=== PATIENT | female | born 1960 | race Two or more races ===

== ENCOUNTER 2019-01-12 15:25 | Emergency (ER) | payer BC, MEDICARE ==
[~2019-01-12] VITALS: Ht 154.9 cm; Wt 99.0 kg
[~2019-01-12 15:25] MED LIST: ONDA4TAB59 PO; SUCR1ORA2 PO
[2019-01-12] MEDS ORDERED: normal saline 1000ML IV soln IV ONE (15:45)
[2019-01-12] MEDS ORDERED: levoFLOXACIN-Levaquin 750MG/D5 150 ML IV ONE (15:45)
[2019-01-12] MEDS ORDERED: methylPREDNISolone sod succ 125mg/2ml vial IV ONE (16:10)
[2019-01-12] MEDS ORDERED: ipratropium/albuterol 3ml nebule NEB ONE (16:10)
[2019-01-12 16:33] LABS: BASOPHILS # (AUTO) 0.1 X10'3 (0-0.2); BASOPHILS % (AUTO) 0.8 % (0-1); EOSINOPHILS # (AUTO) 0.1 X10'3 (0-0.9); EOSINOPHILS % (AUTO) 1.7 % (0-6); HEMATOCRIT 40.7 % (35.0-45.0); HEMOGLOBIN 13.4 g/dl (12.0-16.0); LYMPHOCYTES # (AUTO) 3.2 X10'3 (1.1-4.8); LYMPHOCYTES % (AUTO) 37.6 % (21-51); MEAN CORPUSCULAR HEMOGLOBIN 27.3 PG (27.0-31.0); MEAN CORPUSCULAR VOLUME 82.5 FL (78-98); MONOCYTES # (AUTO) 0.4 X10'3 (0-0.9); MONOCYTES % (AUTO) 4.2 % (2-12); NEUTROPHILS # (AUTO) 4.7 X10'3 (1.8-7.7); NEUTROPHILS % (AUTO) 55.7 % (42-75); PLATELET COUNT 293 X10'3 (140-440); RED BLOOD COUNT 4.93 X10'6 (4.20-5.60); RED CELL DISTRIBUTION WIDTH 16.6 % (11.5-14.5); WHITE BLOOD COUNT 8.4 X10'3 (4.5-11.0)
[2019-01-12 16:36] LABS: PARTIAL THROMBOPLASTIN TIME 27 SECONDS (22-32)
[2019-01-12 16:54] LABS: ALANINE AMINOTRANSFERASE 24 U/L (12-78); ALBUMIN 3.5 G/DL (3.4-5.0); ALBUMIN/GLOBULIN RATIO 0.9 (1.1-1.5); ALKALINE PHOSPHATASE 80 IU/L (46-116); ANION GAP 11 (8-16); ASPARTATE AMINO TRANSFERASE 13 U/L (10-37); BILIRUBIN,TOTAL 0.3 MG/DL (0.1-1.0); BLOOD UREA NITROGEN 10 MG/DL (7-18); BUN/CREATININE RATIO 10.5 (6.6-38.0); CALCIUM 9.3 MG/DL (8.5-10.1); CHLORIDE 106 MMOL/L (99-107); CREATININE 0.95 MG/DL (0.40-0.90); GLUCOSE 164 MG/DL (70-104); MAGNESIUM 1.9 MG/DL (1.5-2.4); POTASSIUM 3.7 MMOL/L (3.5-5.1); SODIUM 145 MMOL/L (135-145); TOTAL CARBON DIOXIDE 28.3 MMOL/L (24-32); TOTAL PROTEIN 7.6 G/DL (6.4-8.2); eGFR 60 ML/MIN
[2019-01-12] MEDS ORDERED: iohexol 350MG/ML 100ml bottle IV ONE (17:14)
--- NOTE | 2019-01-12 17:23 | NUR ---
relieving RN for lunch, pt to [place]
--- NOTE | 2019-01-12 17:40 | NUR ---
pt back from [place], 1st liter NS infusing,
[2019-01-12] MEDS ORDERED: LEVO750T21 PO (18:22)
[2019-01-12] MEDS ORDERED: PRED20TA PO (18:22)
[2019-01-12 18:30] VITALS: BP 151/89
[2019-01-12 18:54] LABS: CLARITY,URINE CLEAR (Clear); COLOR,URINE YELLOW (Yellow); GLUCOSE, URINE NEGATIVE (Neg); KETONES,URINE NEGATIVE (Neg); LEUKOCYTE ESTERASE ,URINE NEGATIVE (Neg); NITRITES, URINE NEGATIVE (Neg); OCCULT BLOOD,URINE NEGATIVE (Neg); PROTEIN,URINE NEGATIVE (Neg); UROBILINOGEN,URINE 0.2 E.U/dL (0.2-1.0)
[2019-01-12 18:55] LABS: UA COLLECTION TYPE CLN CATCH MIDSTREAM
== END 2019-01-12 18:55 | disposition home or self-care (01) ==
LOC: ER 15:25
DX: J20.9 Acute bronchitis, unspecified (principal); F17.200 Nicotine dependence, unspecified, uncomplicated; E03.9 Hypothyroidism, unspecified; G89.29 Other chronic pain; M79.7 Fibromyalgia; Z98.890 Other specified postprocedural states; Z88.5 Allergy status to narcotic agent; Z79.899 Other long term (current) drug therapy
CPT/HCPCS: 36415; 71045; 71275; 80053; 81003; 83605; 83735; 84145; 85025; 85610; 85730; 87040; 87502; 87503; 93005; 94640; 96365; 96375; 99284; J1956; J2930; J7030; Q9967; 94760

== ENCOUNTER 2019-02-14 13:31 | Emergency (ER) | payer MEDICARE, MEDICAID ==
[~2019-02-14] VITALS: Ht 154.9 cm; Wt 99.0 kg
[2019-02-14] MEDS ORDERED: AMOX-580 PO (14:35)
[2019-02-14] MEDS ORDERED: benzonatate 100mg capsule PO ONE (14:35)
[2019-02-14] MEDS ORDERED: ipratropium/albuterol 3ml nebule NEB ONE (14:35)
[2019-02-14] MEDS ORDERED: BENZ-16 PO (14:52)
[2019-02-14 15:06] VITALS: BP 149/81
[2019-02-15] MEDS ORDERED: AZIT-63 PO (04:40)
[2019-02-15] MEDS ORDERED: PRED20TA PO (04:41)
[2019-02-15] MEDS ORDERED: ALBU8.5H8 INH (04:41)
[2019-02-15] MEDS ORDERED: ROBCFL PO (04:41)
== END 2019-02-14 15:07 | disposition home or self-care (01) ==
LOC: ER 13:31
DX: J20.9 Acute bronchitis, unspecified (principal); G89.29 Other chronic pain; M79.7 Fibromyalgia; E03.9 Hypothyroidism, unspecified; F17.200 Nicotine dependence, unspecified, uncomplicated; Z88.5 Allergy status to narcotic agent; Z87.01 Personal history of pneumonia (recurrent)
CPT/HCPCS: 94640; 94760; 99283

== ENCOUNTER 2019-02-15 02:12 | Emergency (ER) | payer MEDICARE, MEDICAID ==
[~2019-02-15] VITALS: Ht 154.9 cm; Wt 90.9 kg
[~2019-02-15 02:12] MED LIST changes: +AMOX-580 PO; +BENZ-16 PO
[2019-02-15] MEDS ORDERED: epiNEPHrine 1 mg/ml inj IM STA (02:21)
[2019-02-15] MEDS ORDERED: LORazepam 2 mg/ml vial IV ONE (02:25)
[2019-02-15] MEDS ORDERED: methylPREDNISolone sod succ 125mg/2ml vial IV ONE (02:25)
[2019-02-15] MEDS ORDERED: ipratropium/albuterol 3ml nebule NEB ONE (02:25)
[2019-02-15] MEDS ORDERED: ondansetron/PF 4mg/2ml inj IV ONE (03:00)
[2019-02-15 03:38] LABS: BASOPHILS # (AUTO) 0.1 X10'3 (0-0.2); EOSINOPHILS # (AUTO) 0.2 X10'3 (0-0.9); HEMATOCRIT 38.9 % (35.0-45.0); HEMOGLOBIN 12.8 g/dl (12.0-16.0); LYMPHOCYTES # (AUTO) 6.8 X10'3 (1.1-4.8); LYMPHOCYTES % (AUTO) 46.3 % (21-51); MEAN CORPUSCULAR HEMOGLOBIN 27.3 PG (27.0-31.0); MEAN CORPUSCULAR HGB CONC 32.9 g/dL (33.0-36.5); MEAN PLATELET VOLUME 8.8 FL (7.4-10.4); MONOCYTES # (AUTO) 1.1 X10'3 (0-0.9); MONOCYTES % (AUTO) 7.4 % (2-12); NEUTROPHILS # (AUTO) 6.5 X10'3 (1.8-7.7); NEUTROPHILS % (AUTO) 44.3 % (42-75); PLATELET COUNT 335 X10'3 (140-440); RED BLOOD COUNT 4.68 X10'6 (4.20-5.60); RED CELL DISTRIBUTION WIDTH 16.3 % (11.5-14.5); WHITE BLOOD COUNT 14.7 X10'3 (4.5-11.0)
[2019-02-15 03:48] LABS: PARTIAL THROMBOPLASTIN TIME 23 SECONDS (22-32)
[2019-02-15 03:51] LABS: ALANINE AMINOTRANSFERASE 18 U/L (12-78); ALBUMIN 3.5 G/DL (3.4-5.0); ALKALINE PHOSPHATASE 74 IU/L (46-116); ANION GAP 11 (8-16); ASPARTATE AMINO TRANSFERASE 10 U/L (10-37); BILIRUBIN,TOTAL 0.4 MG/DL (0.1-1.0); BLOOD UREA NITROGEN 21 MG/DL (7-18); BUN/CREATININE RATIO 22.3 (6.6-38.0); CALCIUM 8.6 MG/DL (8.5-10.1); CHLORIDE 107 MMOL/L (99-107); CREATININE 0.94 MG/DL (0.40-0.90); GLUCOSE 165 MG/DL (70-104); POTASSIUM 3.2 MMOL/L (3.5-5.1); SODIUM 143 MMOL/L (135-145); TOTAL CARBON DIOXIDE 24.8 MMOL/L (24-32); eGFR 61 ML/MIN
[2019-02-15] MEDS ORDERED: normal saline 1000ml 1,000 ML IV ONE (04:05)
[2019-02-15] MEDS ORDERED: AZIT-63 PO (04:40)
[2019-02-15] MEDS ORDERED: ALBU8.5H8 INH (04:41)
[2019-02-15] MEDS ORDERED: ROBCFL PO (04:41)
[2019-02-15] MEDS ORDERED: PRED20TA PO (04:41)
[2019-02-15 05:01] VITALS: BP 125/58
== END 2019-02-15 04:45 | disposition home or self-care (01) ==
LOC: ER 02:12
DX: R06.02 Shortness of breath (principal); E03.9 Hypothyroidism, unspecified; G89.29 Other chronic pain; M79.7 Fibromyalgia; Z98.890 Other specified postprocedural states; Z87.01 Personal history of pneumonia (recurrent); Z79.899 Other long term (current) drug therapy; Z79.2 Long term (current) use of antibiotics; Z88.5 Allergy status to narcotic agent
CPT/HCPCS: 36415; 71045; 80053; 83880; 85025; 85610; 85730; 93005; 94640; 96372; 96374; 96375; 99284; J0171; J2060; J2405; J2930; J7030; 94760

== ENCOUNTER 2020-04-27 16:40 | Emergency (ER) | payer MEDICARE, MEDICAID ==
[~2020-04-27] VITALS: Ht 154.9 cm; Wt 103.2 kg
[~2020-04-27 16:40] MED LIST changes: +ALBU8.5H8 INH; -AMOX-580 PO
--- NOTE | 2020-04-27 18:44 | NUR ---
Pt states she went to the DR and he stated her BS was above 300. Currently 275
[2020-04-27 19:36] LABS: BASOPHILS # (AUTO) 0.1 X10'3 (0-0.2); BASOPHILS % (AUTO) 1.2 % (0-1); EOSINOPHILS # (AUTO) 0.2 X10'3 (0-0.9); EOSINOPHILS % (AUTO) 2.1 % (0-6); HEMATOCRIT 41.3 % (35.0-45.0); HEMOGLOBIN 13.5 g/dl (12.0-16.0); LYMPHOCYTES # (AUTO) 2.9 X10'3 (1.1-4.8); LYMPHOCYTES % (AUTO) 32.5 % (21-51); MEAN CORPUSCULAR HEMOGLOBIN 27.1 PG (27.0-31.0); MEAN CORPUSCULAR HGB CONC 32.7 g/dL (33.0-36.5); MEAN CORPUSCULAR VOLUME 82.8 FL (78-98); MONOCYTES # (AUTO) 0.8 X10'3 (0-0.9); MONOCYTES % (AUTO) 8.7 % (2-12); NEUTROPHILS % (AUTO) 55.5 % (42-75); PLATELET COUNT 297 X10'3 (140-440); RED BLOOD COUNT 4.98 X10'6 (4.20-5.60); RED CELL DISTRIBUTION WIDTH 16.5 % (11.5-14.5); WHITE BLOOD COUNT 9.1 X10'3 (4.5-11.0)
[2020-04-27 19:40] VITALS: BP 128/72
[2020-04-27 19:49] LABS: ALANINE AMINOTRANSFERASE 45 U/L (12-78); ALBUMIN 3.5 G/DL (3.4-5.0); ALBUMIN/GLOBULIN RATIO 0.8 (1.1-1.5); ALKALINE PHOSPHATASE 97 IU/L (46-116); ANION GAP 8 (8-16); ASPARTATE AMINO TRANSFERASE 22 U/L (10-37); BILIRUBIN,TOTAL 0.2 MG/DL (0.1-1.0); BLOOD UREA NITROGEN 11 MG/DL (7-18); BUN/CREATININE RATIO 12.8 (6.6-38.0); CALCIUM 9.4 MG/DL (8.5-10.1); CHLORIDE 103 MMOL/L (99-107); CREATININE 0.86 MG/DL (0.40-0.90); GLUCOSE 215 MG/DL (70-104); POTASSIUM 4.2 MMOL/L (3.5-5.1); SODIUM 140 MMOL/L (135-145); TOTAL CARBON DIOXIDE 29.1 MMOL/L (24-32); TOTAL PROTEIN 7.8 G/DL (6.4-8.2); eGFR 67 ML/MIN
[2020-04-27 20:11] LABS: CLARITY,URINE CLEAR (Clear); COLOR,URINE YELLOW (Yellow); GLUCOSE, URINE >=1000 mg/dl (Neg); KETONES,URINE NEGATIVE (Neg); LEUKOCYTE ESTERASE ,URINE NEGATIVE (Neg); NITRITES, URINE NEGATIVE (Neg); OCCULT BLOOD,URINE NEGATIVE (Neg); PROTEIN,URINE NEGATIVE (Neg); UROBILINOGEN,URINE 0.2 E.U/dL (0.2-1.0)
[2020-04-27 20:12] LABS: UA COLLECTION TYPE CLN CATCH MIDSTREAM
[2020-04-27 20:21] LABS: BACTERIA,URINE NONE SEEN /HPF (Neg); RBC,URINE 0-2 /HPF (0-2); SQUAMOUS EPITHELIAL CELL,UR FEW /LPF (FEW); WBC,URINE NONE SEEN /HPF (0-4)
== END 2020-04-27 20:21 | disposition home or self-care (01) ==
LOC: ER 16:41
DX: R73.9 Hyperglycemia, unspecified (principal); M79.7 Fibromyalgia; E03.9 Hypothyroidism, unspecified; G89.29 Other chronic pain; Z87.01 Personal history of pneumonia (recurrent); Z88.6 Allergy status to analgesic agent; Z88.8 Allergy status to other drugs, medicaments and biological substances; Z79.899 Other long term (current) drug therapy
CPT/HCPCS: 36415; 80053; 81001; 82948; 85025; 99283

== ENCOUNTER 2024-04-17 08:20 | Emergency (ER) | payer MEDICARE, MEDICAID ==
[~2024-04-17] VITALS: Ht 154.9 cm; Wt 86.4 kg
[~2024-04-17 08:20] MED LIST changes: +ALBU8.5H17 INH; -ALBU8.5H8 INH
[2024-04-17] MEDS: ringers solution, lacted 1,000 ML IV ONE (09:16)
[2024-04-17] MEDS: ondansetron/PF 4mg/2ml inj IV ONE (09:17)
[2024-04-17] MEDS: HYDROmorphone 1 mg/ml syringe IV ONE (09:17)
[2024-04-17] MEDS: ketorolac trometh 15mg/ml vial 15 MG/ML ML IV ONE (09:18)
[2024-04-17 09:39] LABS: BASOPHILS # (AUTO) 0.1 X10'3 (0-0.2); BASOPHILS % (AUTO) 0.5 % (0-1); EOSINOPHILS % (AUTO) 0.1 % (0-6); HEMATOCRIT 42.7 % (35.0-45.0); HEMOGLOBIN 13.6 g/dl (12.0-16.0); LYMPHOCYTES # (AUTO) 1.5 X10'3 (1.1-4.8); LYMPHOCYTES % (AUTO) 12.2 % (21-51); MEAN CORPUSCULAR HEMOGLOBIN 26.9 PG (27.0-31.0); MEAN CORPUSCULAR HGB CONC 31.8 g/dL (33.0-36.5); MEAN CORPUSCULAR VOLUME 84.4 FL (78-98); MEAN PLATELET VOLUME 9.1 FL (7.4-10.4); MONOCYTES # (AUTO) 0.5 X10'3 (0-0.9); NEUTROPHILS # (AUTO) 10.3 X10'3 (1.8-7.7); NEUTROPHILS % (AUTO) 83.2 % (42-75); PLATELET COUNT 276 X10'3 (140-440); RED BLOOD COUNT 5.06 X10'6 (4.20-5.60); RED CELL DISTRIBUTION WIDTH 16.2 % (11.5-14.5); WHITE BLOOD COUNT 12.4 X10'3 (4.5-11.0)
[2024-04-17 09:53] LABS: ALANINE AMINOTRANSFERASE 20 U/L (12-78); ALBUMIN 3.7 G/DL (3.4-5.0); ALBUMIN/GLOBULIN RATIO 0.9 (1.1-1.5); ALKALINE PHOSPHATASE 77 IU/L (46-116); ANION GAP 11 (8-16); ASPARTATE AMINO TRANSFERASE 17 U/L (10-37); BILIRUBIN,TOTAL 0.3 MG/DL (0.1-1.0); BLOOD UREA NITROGEN 13 MG/DL (7-18); BUN/CREATININE RATIO 15.7 (10.0-20.0); CALCIUM 9.2 MG/DL (8.5-10.1); CHLORIDE 106 MMOL/L (99-107); CREATININE 0.83 MG/DL (0.40-0.90); GLUCOSE 137 MG/DL (70-104); LIPASE 37 U/L (16-77); POTASSIUM 3.7 MMOL/L (3.5-5.1); SODIUM 144 MMOL/L (135-145); TOTAL CARBON DIOXIDE 27.5 MMOL/L (24-32); eCRCL 52 ML/MIN; eGFR 69 ML/MIN
[2024-04-17 10:00] LABS: URINE HCG NEGATIVE (NEG)
[2024-04-17 10:06] LABS: BILIRUBIN,URINE NEGATIVE (Neg); CLARITY,URINE CLEAR (Clear); COLOR,URINE YELLOW (Yellow); GLUCOSE, URINE NEGATIVE (Neg); KETONES,URINE 15 mg/dl (Neg); LEUKOCYTE ESTERASE ,URINE NEGATIVE (Neg); NITRITES, URINE NEGATIVE (Neg); OCCULT BLOOD,URINE NEGATIVE (Neg); PROTEIN,URINE NEGATIVE (Neg); UROBILINOGEN,URINE 0.2 E.U/dL (0.2-1.0)
[2024-04-17 10:16] LABS: UA COLLECTION TYPE CLN CATCH MIDSTREAM
[2024-04-17] MEDS ORDERED: iohexol 300mg/ml 100ml inj. ONE (10:16)
[2024-04-17 11:50] VITALS: BP 149/71; PULSE 66; RESP 15; TEMP 97.6; O2SAT 98
== END 2024-04-17 11:53 | disposition home or self-care (01) ==
LOC: ER 08:21
DX: K80.50 Calculus of bile duct without cholangitis or cholecystitis without obstruction (principal); E03.9 Hypothyroidism, unspecified; E11.9 Type 2 diabetes mellitus without complications; E66.9 Obesity, unspecified; Z88.5 Allergy status to narcotic agent
CPT/HCPCS: 36415; 74177; 76700; 80053; 81003; 81025; 83690; 85025; 96361; 96374; 96375; 99285; J1171; J1885; J2405; J7120; Q9967